=== PATIENT | female | born 1965 | race Asian ===

== ENCOUNTER → 2018-02-15 | Outpatient (CLI) | payer BC | LOC: MC.RAD 13:33 | DX: Z12.31 Encounter for screening mammogram for malignant neoplasm of breast (principal) ==

== ENCOUNTER 2018-03-04 06:30 | Day surgery (SDC) | payer BC ==
[~2018-03-04] VITALS: Ht 157.5 cm; Wt 44.1 kg
[2018-03-04] MEDS ORDERED: COZAAR 25MG25 MG/TAB PO (06:48)
[2018-03-04 07:01] VITALS: BP 115/69; PULSE 97; TEMP 97.9
[2018-03-04 08:22] VITALS: BP 88/63; PULSE 73; TEMP 97.2
[2018-03-04 08:37] VITALS: BP 97/77; PULSE 76
[2018-03-04 08:52] VITALS: BP 96/67; PULSE 55
== END 2018-03-04 09:10 | disposition home or self-care (01) ==
LOC: SDCO 06:30
DX: Z12.11 Encounter for screening for malignant neoplasm of colon (principal)
CPT/HCPCS: J2250; J3010; J7030

== ENCOUNTER → 2020-02-26 | Outpatient (CLI) | payer BC ==
[~2020-02-26] MED LIST: COZAAR 25MG25 MG/TAB PO
== END ==
LOC: MC.RAD 13:03
DX: Z12.31 Encounter for screening mammogram for malignant neoplasm of breast (principal)

== ENCOUNTER → 2022-03-20 | Outpatient (CLI) | payer BC | LOC: MC.RAD 09:59 | DX: Z12.31 Encounter for screening mammogram for malignant neoplasm of breast (principal) ==